=== PATIENT | male | born 1950 | race Caucasian/White ===

== ENCOUNTER 2021-10-03 16:12 | Emergency (ER) | payer MEDICARE ==
[~2021-10-03] VITALS: Ht 172.7 cm; Wt 85.3 kg
--- NOTE | 2021-10-03 16:50 | NUR ---
PT CAME TO ER C/O DIZZINESS AND CLOUDY VISION 20 MINS AGO WHILE DRIVING. PT ALSO REPORTS HAVING DIFFICULTY FORMING WORDS 2 HRS AGO. AAOX4, BREATHING EVEN AND UNLABORED, PT SPEAKS CLEARLY AND IN FULL SENTENCES. ABLE TO MOVE ALL EXTREMITIES. NO FACIAL SLUR OR DEFICITS NOTED. WILL CONTINUE TO MONITOR.
[2021-10-03] MEDS ORDERED: IV NS 0.9% 500 ML BAG IV ONE (17:00)
--- NOTE | 2021-10-03 17:19 | NUR ---
PATIENT WHEELED OUT VIA GURNEY FOR CT SCAN
--- NOTE | 2021-10-03 17:27 | NUR ---
PATIENT REFUSED BLOOD DRAW FOR THE SECOND TIME. EXPLAINED RISK AND BENEFITS. STILL REFUSED BLOOD DRAW. MADE DR BARRIOS AWARE
--- NOTE | 2021-10-03 17:39 | NUR ---
PT REFUSED COVID TEST AND BLOOD DRAW. AWARE. PT WANTS CT RESULTS ONLY
--- NOTE | 2021-10-03 17:39 | NUR ---
REFUSED RAPID COVID TEST, MADE AWARE
[2021-10-03] MEDS ORDERED: FURO20TA4 PO (17:41)
[2021-10-03] MEDS ORDERED: DIGO250T PO (17:41)
[2021-10-03] MEDS ORDERED: APIX5TAB PO (17:41)
[2021-10-03] MEDS ORDERED: EPLE25TA10 PO (17:41)
[2021-10-03] MEDS ORDERED: VALS40TA12 PO (17:41)
[2021-10-03] MEDS ORDERED: METO-358 PO (17:41)
--- NOTE | 2021-10-03 18:55 | NUR ---
Patient does not wish to proceed with medical care recommended by Dr. Tolbert. Patient given information related to possible complications, up to and including , which could occur as a result of leaving the hospital at this time. Patient verbalizes understanding of risks involved due to leaving against medical advice. Patient has signed AMA form.
--- NOTE | 2021-10-03 18:55 | NUR ---
PT ABLE TO WALK STRAIGHT. VS STABLE.
[2021-10-03 18:56] VITALS: BP 128/57
== END 2021-10-03 18:57 | disposition left against medical advice (07) ==
LOC: ER 16:12
DX: R42 Dizziness and giddiness (principal); I50.9 Heart failure, unspecified; Z88.2 Allergy status to sulfonamides; Z79.899 Other long term (current) drug therapy
CPT/HCPCS: 70450-TC; 71045-TC